=== PATIENT | female | born 1930 | race Asian ===

== ENCOUNTER 2016-08-30 17:47 | Emergency (ER) | payer OTHER ==
[~2016-08-30] VITALS: Ht 162.6 cm; Wt 99.8 kg
[~2016-08-30 17:47] MED LIST: ALPHAGAN P0.1 % OP; ALPR0.2566 PO; BENA20TA2 PO; DICL75TA4 PO; PANT40TA PO; PRED5TAB3 PO; SPIR50TA8 PO
[2016-08-30 18:04] VITALS: TEMP 98
[2016-08-30 18:52] LABS: PLATELET COUNT 143 K/uL (152-353)
[2016-08-30 19:00] LABS: POTASSIUM 5.5 mmol/L (3.6-5.2); SODIUM 137 mmol/L (136-145)
[2016-08-30 19:16] LABS: PARTIAL THROMBOPLASTIN TIME 21.3 SECONDS (24.5-33.6)
[2016-08-30 20:47] VITALS: BP 116/53
== END 2016-08-30 20:47 | disposition home or self-care (01) ==
LOC: ED 17:47
PROVIDERS: Family Medicine
DX: R53.83 Other fatigue (principal); N18.9 Chronic kidney disease, unspecified; E86.0 Dehydration
CPT/HCPCS: 36415; 80053; 82550; 82553; 84484; 85027; 85610; 85730; 93005; 99283

== ENCOUNTER 2016-10-17 16:59 | Inpatient (IN) | payer OTHER ==
[~2016-10-17] VITALS: Ht 165.1 cm; Wt 95.8 kg
[2016-10-17 17:09] VITALS: BP 100/36; TEMP 98.8
[2016-10-17] MEDS ORDERED: ELIQUIS5 MG OR (17:21)
[2016-10-17] MEDS ORDERED: CEPH500C20 PO (17:21)
[2016-10-17] MEDS ORDERED: PREDNISONE5 M1 OR (17:22)
[2016-10-17 18:28] LABS: PLATELET COUNT 202 K/uL (152-353)
[2016-10-17 18:40] LABS: POTASSIUM 5.2 mmol/L (3.6-5.2)
[2016-10-17 20:55] VITALS: BP 112/60; TEMP 98.1
[2016-10-18] VITALS (7 sets, daily range): BP systolic 107–131; BP diastolic 39–66; TEMP 98.1–98.9; Ht 165.1 cm; Wt 95.8 kg
[2016-10-18 07:29] LABS: PLATELET COUNT 178 K/uL (152-353)
[2016-10-18 07:33] LABS: POTASSIUM 4.5 mmol/L (3.6-5.2)
[2016-10-18] MEDS ORDERED: BENA20TA2 PO (11:28)
[2016-10-19 00:23] VITALS: BP 108/40; TEMP 98
[2016-10-19 04:00] VITALS: BP 114/88; TEMP 98.2
[2016-10-19 05:25] LABS: PLATELET COUNT 188 K/uL (152-353)
[2016-10-19 05:39] LABS: POTASSIUM 4.6 mmol/L (3.6-5.2)
[2016-10-19 08:00] VITALS: BP 123/57; TEMP 98.6
[2016-10-19 12:00] VITALS: BP 122/50; TEMP 98.3
--- NOTE | 2016-10-19 15:28 | NUR ---
1130 DR LARSON IN ROOM AT THIS TIME. 1400 UR CONTACTED ABOUT PT AND HELP WITH OBTAINING ELIQUIS FOR DISCHARGE. 1500 NEW ORDERS REC'D TO CHANGE PT TO SWING BED STATUS IN AM. DR LARSON WILL DECIDE IN AM CONCERNING ULNA BOOT TO RT LOWER EXT . PT INFORMED AND AWARE
[2016-10-19 16:00] VITALS: BP 114/54; TEMP 97.8
[2016-10-19 20:00] VITALS: BP 146/50; TEMP 99
[2016-10-20] VITALS: BP 113/44; TEMP 99
[2016-10-20 04:00] VITALS: BP 115/55; TEMP 98.1
[2016-10-20 05:13] LABS: PLATELET COUNT 190 K/uL (152-353)
[2016-10-20 05:38] LABS: POTASSIUM 4.6 mmol/L (3.6-5.2)
[2016-10-20 08:00] VITALS: BP 138/65; TEMP 98.3
[2016-10-20 12:00] VITALS: BP 118/61; TEMP 98.4
[2016-10-20 16:00] VITALS: BP 103/60; TEMP 98.3
--- NOTE | 2016-10-20 17:56 | NUR ---
PT CHANGED TO SWING BED STATUS
== END 2016-10-20 16:19 | disposition swing bed (61) | DRG 603 ==
LOC: ED 16:59 → MED/SURG 19:00
PROVIDERS: Emergency Medicine
DX: L03.116 Cellulitis of left lower limb (principal); I73.89 Other specified peripheral vascular diseases; L03.115 Cellulitis of right lower limb; R60.0 Localized edema; E83.42 Hypomagnesemia; E87.6 Hypokalemia; I10 Essential (primary) hypertension; K21.9 Gastro-esophageal reflux disease without esophagitis; M15.8 Other polyosteoarthritis
CPT/HCPCS: 36415; 80053; 83735; 83880; 85027; 96365; 96375; 99284; J0696; J0744; J1940; J3475

== ENCOUNTER 2016-10-20 15:19 | Inpatient (IN) | payer OTHER ==
[~2016-10-20] VITALS: Ht 165.1 cm; Wt 99.9 kg
[~2016-10-20 15:19] MED LIST changes: +CEPH500C20 PO; +ELIQUIS5 MG OR; +PREDNISONE5 M1 OR
[2016-10-20 20:00] VITALS: BP 116/47; TEMP 98.6
[2016-10-21 07:14] VITALS: BP 116/97; TEMP 98.6; Ht 165.1 cm; Wt 99.9 kg
[2016-10-21 08:26] VITALS: BP 135/78; TEMP 98.5
[2016-10-21 20:00] VITALS: BP 112/40; TEMP 98.6
[2016-10-22 08:22] VITALS: BP 101/82; TEMP 97.9
[2016-10-22 20:00] VITALS: BP 107/38; TEMP 98.5
[2016-10-23 08:00] VITALS: BP 112/44; TEMP 97.8
[2016-10-23 20:15] VITALS: BP 109/59; TEMP 97.9
[2016-10-24 08:00] VITALS: BP 93/33; TEMP 98.4
[2016-10-24 20:09] VITALS: BP 129/61; TEMP 98.4
[2016-10-25 08:00] VITALS: BP 92/50; TEMP 98.6
[2016-10-25 20:00] VITALS: BP 95/50; TEMP 98.6
[2016-10-26 08:00] VITALS: BP 92/41; TEMP 98
[2016-10-26 20:00] VITALS: BP 97/41; TEMP 99.1
[2016-10-27 05:43] LABS: PLATELET COUNT 183 K/uL (152-353)
[2016-10-27 05:53] LABS: POTASSIUM 5.2 mmol/L (3.6-5.2)
[2016-10-27 08:00] VITALS: BP 80/41; TEMP 98.3
[2016-10-27 20:00] VITALS: BP 119/41; TEMP 98
[2016-10-28 08:00] VITALS: BP 110/48; TEMP 98.8
[2016-10-28 20:00] VITALS: BP 120/67; TEMP 97
[2016-10-29 08:00] VITALS: BP 100/42; TEMP 98.9
[2016-10-29 20:00] VITALS: BP 100/61; BP 133/56; TEMP 98.5; TEMP 98.7
[2016-10-30 08:00] VITALS: BP 138/58; TEMP 98.5
[2016-10-30 20:00] VITALS: BP 140/58; TEMP 98.3
[2016-10-31 08:00] VITALS: BP 131/42; TEMP 98
[2016-10-31 20:00] VITALS: BP 128/41; TEMP 98.5
[2016-11-01 08:00] VITALS: BP 110/49; BP 130/55; TEMP 98.7
[2016-11-01 20:00] VITALS: BP 93/68; TEMP 97.9
[2016-11-02 08:00] VITALS: BP 103/48; TEMP 98.3
[2016-11-02 20:29] VITALS: BP 113/57; TEMP 98
[2016-11-03 05:01] LABS: PLATELET COUNT 175 K/uL (152-353)
[2016-11-03 05:19] LABS: POTASSIUM 4.9 mmol/L (3.6-5.2)
[2016-11-03 08:00] VITALS: BP 124/48; TEMP 98.4
[2016-11-03 20:00] VITALS: BP 117/47; TEMP 98.2
[2016-11-04 08:00] VITALS: BP 117/88; TEMP 98.8
[2016-11-04 20:00] VITALS: BP 106/44; TEMP 97
[2016-11-05 08:00] VITALS: BP 127/66; TEMP 99
[2016-11-05 20:00] VITALS: BP 116/50; TEMP 98.1
[2016-11-06 08:14] VITALS: BP 146/73; TEMP 98.3
[2016-11-06 20:15] VITALS: BP 121/40; BP 129/61; TEMP 97.7
[2016-11-07 06:10] LABS: PLATELET COUNT 159 K/uL (152-353)
[2016-11-07 06:12] LABS: POTASSIUM 5.2 mmol/L (3.6-5.2)
[2016-11-07 08:00] VITALS: BP 115/55; TEMP 98.5
[2016-11-07 20:00] VITALS: BP 137/64; TEMP 98.4
[2016-11-08 08:00] VITALS: BP 119/58; TEMP 98.6
[2016-11-08 20:00] VITALS: BP 140/53; TEMP 98.6
[2016-11-09 08:00] VITALS: BP 143/57; TEMP 99
[2016-11-09 20:00] VITALS: BP 115/54; TEMP 97.7
[2016-11-10 05:30] LABS: PLATELET COUNT 171 K/uL (152-353)
[2016-11-10 05:45] LABS: POTASSIUM 5.2 mmol/L (3.6-5.2)
[2016-11-10 07:50] VITALS: BP 153/80; TEMP 97.9
[2016-11-10 20:09] VITALS: BP 135/58; TEMP 97.6
[2016-11-11 08:00] VITALS: BP 119/47; TEMP 98.7
[2016-11-11 20:07] VITALS: BP 121/61; TEMP 98.6
[2016-11-12 08:00] VITALS: BP 158/54; TEMP 98.5
[2016-11-12 20:00] VITALS: BP 133/62; TEMP 98.6
[2016-11-13 08:00] VITALS: BP 131/70; TEMP 98.6
[2016-11-13 20:00] VITALS: BP 119/84; TEMP 98.1
[2016-11-14 08:00] VITALS: BP 124/55; TEMP 98.9
== END 2016-11-14 16:28 | disposition home health service (06) | DRG 556 ==
LOC: MED/SURG 15:19
PROVIDERS: ADMIT Emergency Medicine
DX: M62.81 Muscle weakness (generalized) (principal); L03.116 Cellulitis of left lower limb; L03.115 Cellulitis of right lower limb; I73.89 Other specified peripheral vascular diseases; I10 Essential (primary) hypertension; R60.0 Localized edema
CPT/HCPCS: 36415; 80053; 83880; 85027; 87081

== ENCOUNTER 2016-12-07 15:53 | Emergency (ER) | payer OTHER ==
[~2016-12-07] VITALS: Ht 165.1 cm; Wt 99.8 kg
[2016-12-07 16:05] VITALS: BP 124/67; TEMP 98.6
[2016-12-07] MEDS ORDERED: TRAMADOL HCL E100 MG PO (16:15)
[2016-12-07] MEDS ORDERED: TYLENOL325 MG OR (16:16)
== END 2016-12-07 17:30 | disposition home or self-care (01) ==
LOC: ED 15:53
DX: I87.8 Other specified disorders of veins (principal)
CPT/HCPCS: 99282

== ENCOUNTER 2016-12-17 11:51 | Emergency (ER) | payer OTHER ==
[~2016-12-17] VITALS: Ht 165.1 cm; Wt 99.8 kg
[~2016-12-17 11:51] MED LIST changes: +TRAMADOL HCL E100 MG PO; +TYLENOL325 MG OR
[2016-12-17 13:29] LABS: PLATELET COUNT 168 K/uL (152-353)
[2016-12-17 13:38] LABS: POTASSIUM 5.1 mmol/L (3.6-5.2)
[2016-12-17 15:50] VITALS: BP 138/56; TEMP 98.7
== END 2016-12-17 16:03 | disposition home or self-care (01) ==
LOC: ED 11:51
PROVIDERS: Specialist
DX: I89.1 Lymphangitis (principal); L30.8 Other specified dermatitis
CPT/HCPCS: 36415; 80053; 81000; 83735; 85027; 85651; 96374; 99283; J0690; J7040

== ENCOUNTER 2017-02-15 14:37 | Emergency (ER) | payer OTHER ==
[~2017-02-15] VITALS: Ht 167.6 cm; Wt 99.8 kg
[2017-02-15 14:45] VITALS: TEMP 98.2
[2017-02-15 16:19] LABS: PLATELET COUNT 208 K/uL (152-353)
[2017-02-15 16:28] LABS: POTASSIUM 4.6 mmol/L (3.6-5.2)
[2017-02-15 16:36] VITALS: BP 128/98
[2017-02-15 16:46] LABS: PARTIAL THROMBOPLASTIN TIME 25.1 SECONDS (24.5-33.6)
== END 2017-02-15 16:42 | disposition home or self-care (01) ==
LOC: ED 14:37
PROVIDERS: Emergency Medicine
DX: I87.2 Venous insufficiency (chronic) (peripheral) (principal); I88.1 Chronic lymphadenitis, except mesenteric; M79.662 Pain in left lower leg; Z79.01 Long term (current) use of anticoagulants
CPT/HCPCS: 36415; 80053; 85027; 85610; 85730; 99283

== ENCOUNTER 2017-03-25 15:03 | Inpatient (IN) | payer OTHER ==
[~2017-03-25] VITALS: Ht 165.1 cm; Wt 93.6 kg
[2017-03-25 15:30] VITALS: BP 117/98; TEMP 98.4
[2017-03-25 16:56] LABS: PLATELET COUNT 219 K/uL (152-353)
[2017-03-25 17:04] LABS: POTASSIUM 4.4 mmol/L (3.6-5.2)
[2017-03-25 18:33] VITALS: BP 134/56; TEMP 97.6; Ht 165.1 cm; Wt 93.6 kg
[2017-03-25 20:00] VITALS: BP 138/60; TEMP 98.8
[2017-03-26] VITALS: BP 134/54; TEMP 98.6
[2017-03-26 04:00] VITALS: BP 162/72; TEMP 98.2
[2017-03-26 05:59] LABS: POTASSIUM 4.9 mmol/L (3.6-5.2)
[2017-03-26 06:13] LABS: PLATELET COUNT 193 K/uL (152-353)
[2017-03-26 08:00] VITALS: BP 168/76; TEMP 98.8
[2017-03-26 12:00] VITALS: BP 131/61; TEMP 98.7
[2017-03-26 16:00] VITALS: BP 129/57; TEMP 98.8
[2017-03-26 20:00] VITALS: BP 110/96; TEMP 98.8
[2017-03-27 00:25] VITALS: BP 134/61; TEMP 98.6
[2017-03-27 03:47] VITALS: BP 130/71; TEMP 98
[2017-03-27 05:29] LABS: PLATELET COUNT 190 K/uL (152-353)
[2017-03-27 06:03] LABS: POTASSIUM 5.1 mmol/L (3.6-5.2)
[2017-03-27 08:00] VITALS: BP 149/80; TEMP 98.8
[2017-03-27 11:36] VITALS: BP 112/58; TEMP 98.6
[2017-03-27 16:00] VITALS: BP 129/53; TEMP 98.8
[2017-03-27 20:00] VITALS: BP 132/72; TEMP 98.9
[2017-03-28] VITALS: BP 124/73; TEMP 99.2
[2017-03-28 04:00] VITALS: BP 140/65; TEMP 98.6
[2017-03-28 06:54] LABS: PLATELET COUNT 185 K/uL (152-353)
[2017-03-28 07:16] LABS: POTASSIUM 4.9 mmol/L (3.6-5.2)
[2017-03-28 08:00] VITALS: BP 113/56; TEMP 98.8
[2017-03-28 12:00] VITALS: BP 119/55; TEMP 98.1
[2017-03-28 16:00] VITALS: BP 145/66; TEMP 99
[2017-03-28 20:00] VITALS: BP 146/112; TEMP 98.9
[2017-03-29] VITALS: BP 128/55; TEMP 99.3
[2017-03-29 04:00] VITALS: BP 135/54; TEMP 99.5
[2017-03-29 07:20] LABS: PLATELET COUNT 166 K/uL (152-353)
[2017-03-29 08:00] VITALS: BP 134/58; TEMP 98.7
[2017-03-29 12:05] VITALS: BP 133/67; TEMP 98.3
[2017-03-29 15:49] VITALS: BP 128/66; TEMP 98.8
[2017-03-29 20:24] VITALS: BP 105/64; TEMP 98.8
[2017-03-30] VITALS: BP 126/58; TEMP 98.6
[2017-03-30 04:00] VITALS: BP 150/57; TEMP 98.3
[2017-03-30 05:04] LABS: PLATELET COUNT 163 K/uL (152-353)
[2017-03-30 08:00] VITALS: BP 118/55; TEMP 97.8
[2017-03-30 08:16] LABS: POTASSIUM 5.2 mmol/L (3.6-5.2)
[2017-03-30 12:00] VITALS: BP 96/40; TEMP 98
[2017-03-30 16:00] VITALS: BP 117/54; TEMP 99.4
[2017-03-30 20:00] VITALS: BP 129/60; TEMP 99.1
[2017-03-31] VITALS: BP 121/55; TEMP 99
[2017-03-31 04:00] VITALS: BP 160/72; TEMP 98.1
[2017-03-31 05:55] LABS: PLATELET COUNT 135 K/uL (152-353)
[2017-03-31 06:15] LABS: POTASSIUM 5.1 mmol/L (3.6-5.2)
[2017-03-31 08:13] VITALS: BP 93/75; TEMP 99
[2017-03-31 12:13] VITALS: BP 151/51; TEMP 98.5
[2017-03-31 15:58] VITALS: BP 153/72; TEMP 99.3
[2017-03-31 20:01] VITALS: BP 101/52; TEMP 99.3
[2017-04-01] VITALS: BP 93/44; TEMP 99.3
[2017-04-01 04:00] VITALS: BP 95/38; TEMP 98.8
[2017-04-01 06:28] LABS: PLATELET COUNT 167 K/uL (152-353)
[2017-04-01 06:32] LABS: POTASSIUM 5.2 mmol/L (3.6-5.2)
[2017-04-01 08:00] VITALS: BP 122/62; TEMP 99.1
[2017-04-01 11:49] VITALS: BP 114/76; TEMP 99
[2017-04-01 16:24] VITALS: BP 136/55; TEMP 99.4
[2017-04-01 19:57] VITALS: BP 122/53; TEMP 99.4
[2017-04-02] VITALS: BP 117/59; TEMP 99.7
[2017-04-02 04:00] VITALS: BP 111/49; TEMP 98.4
[2017-04-02 06:37] LABS: PLATELET COUNT 162 K/uL (152-353)
[2017-04-02 08:00] VITALS: BP 126/58; TEMP 98.6
[2017-04-02 12:00] VITALS: BP 105/64; TEMP 98.8
[2017-04-02 16:00] VITALS: BP 132/58; TEMP 98.6
[2017-04-02 20:00] VITALS: BP 149/74; TEMP 100.2
[2017-04-03] VITALS: BP 152/68; TEMP 99.3
[2017-04-03 04:00] VITALS: BP 130/62; TEMP 99.2
[2017-04-03 05:17] LABS: PLATELET COUNT 173 K/uL (152-353)
[2017-04-03 05:53] LABS: POTASSIUM 5.1 mmol/L (3.6-5.2)
[2017-04-03 08:00] VITALS: BP 114/57; TEMP 98.9
[2017-04-03 11:42] VITALS: BP 100/51; TEMP 98.6
[2017-04-03 16:00] VITALS: BP 152/68; TEMP 98.9
[2017-04-03 20:00] VITALS: BP 119/59; TEMP 99.6
[2017-04-04] VITALS: BP 123/62; TEMP 98.9
[2017-04-04 04:00] VITALS: BP 127/50; TEMP 98.6
[2017-04-04 05:32] LABS: PLATELET COUNT 162 K/uL (152-353)
[2017-04-04 05:52] LABS: POTASSIUM 5.3 mmol/L (3.6-5.2)
[2017-04-04 08:00] VITALS: BP 123/69; TEMP 97.8
[2017-04-04 12:00] VITALS: BP 110/59; TEMP 99.7
[2017-04-04 16:00] VITALS: BP 114/58; TEMP 98.8
[2017-04-04 20:27] VITALS: BP 146/57; TEMP 99.1
[2017-04-05 00:22] VITALS: BP 105/58; TEMP 98.8
[2017-04-05 04:00] VITALS: BP 140/62; TEMP 99.5
[2017-04-05 08:00] VITALS: BP 138/60; TEMP 99.1
[2017-04-05 08:57] LABS: PLATELET COUNT 171 K/uL (152-353)
[2017-04-05 09:05] LABS: POTASSIUM 4.9 mmol/L (3.6-5.2)
[2017-04-05 11:48] VITALS: BP 131/59; TEMP 98.8
[2017-04-05 16:00] VITALS: BP 100/46; TEMP 98.8
[2017-04-05 20:00] VITALS: BP 111/60; TEMP 98.4
[2017-04-06] VITALS: BP 134/58; TEMP 100.5
[2017-04-06 04:00] VITALS: BP 115/55; TEMP 98.5
[2017-04-06 05:38] LABS: PLATELET COUNT 173 K/uL (152-353)
[2017-04-06 08:00] VITALS: BP 128/69; TEMP 98.5
[2017-04-06 14:31] VITALS: BP 127/50; TEMP 99.4
== END 2017-04-06 13:42 | disposition other institution (70) | DRG 603 ==
LOC: ED 15:03 → MED/SURG 17:30
PROVIDERS: Emergency Medicine; Family Medicine
DX: L03.116 Cellulitis of left lower limb (principal); F02.81 Dementia in other diseases classified elsewhere, unspecified severity, with behavioral disturbance; L03.115 Cellulitis of right lower limb; I73.89 Other specified peripheral vascular diseases; I10 Essential (primary) hypertension; D64.89 Other specified anemias; G30.8 Other Alzheimer's disease; Z91.19 Patient's noncompliance with other medical treatment and regimen
CPT/HCPCS: 36415; 80053; 82948; 83735; 85027; 87070; 87205; 93005; 96365; 96366; 96367; 99284; J0696; J1940; J2060; J3490; Q0177